=== PATIENT | male | born 1960 | race Caucasian/White ===

== ENCOUNTER 2025-05-13 11:07 | Outpatient (OUT) | payer OTHER, SELFPAY ==
--- OUTSIDE RECORDS SUMMARY | 2025-05-13 06:21 | XMS_ITS ---
Author Organization The [facility] in [place] Address [address] [place] [address] Care Team Providers Care Master In Chancery Name Role Phone Gray Ceja Primary Care Provider Reason For Referral Diagnosis 1 Atrial fibrillation (I48.91) Referral Organization [facility] Referring Provider First Name Gray Referring Provider Last Name Brenna [facility]ine Referred Provider Specialty Cardiology Referral Priority Routine REASON FOR VISIT referral- LMTCB Problems Problem Type SNOMED Code ICD Code Onset Dates Problem Status W/U Status Risk Notes Problem Atrial fibrillation (64781833) Atrial fibrillation (I48.91) Active confirmed Procedures Procedure Date Ordered Date Performed Result Body Sit e Echocardiogram 05/13/2025 N/A Encounters Encounter Location Date Provider Diagnosis [facility] [address] [place] [address] 05/13/2025 Gray Ceja Atrial fibrillation I48.91 Assessments Encounter Date Diagnosis (ICD Code) Assessment Notes Treatment Notes Treatment Clinical Notes Section Notes 05/13/2025 Atrial fibrillation (ICD-10 - I48.91) Plan Of Treatment Pending Test Test Name Order Date Echocardiogram 05/13/2025 Referrals Referral Date Details 05/13/2025 05/13/2025 Progress Notes * Noe QUINONES ADOB: (65 yo M)Acc No.[id number]:05/13/2025 UNLOCKED PROGRESS NOTE Patient: Homa Noe BOYLE :1960 A ge:65 Y S ex:Male Address:[address] [place], [address] Subjective: * Chief Complaints: * r eferral- LMTCB * Medical History: * Surgical History: * Hospitalization/Major Diagno stic Procedure: * Medications: Objective: * Vitals: * Physical Examination: Assessment: * Assessment: 1. A trial fibrillation - I48.91 (Primary) Plan: * Treatment: * Procedure Codes: * * Date: Consultation Request Notes Referral Date Referring Provider Referred Provider Not 05/13/2025 Gray Ceja ,
--- OUTSIDE RECORDS SUMMARY | 2025-05-13 06:29 | XMS_ITS ---
Author Organization [facility] in [place] Address [address] [place] [address] Care Team Providers Care Surveillance Technician Name Role Phone Gray Ceja Primary Care Provider REASON FOR VISIT Refills Medications Medication SIG (Take, Route, Frequency, Duration) Notes Start Date End Date Status ZyrTEC Allergy 10 MG 3 tablet Orally at bedtime for 90 days Active QUEtiapine Fumarate 100 MG TAKE 1 TABLET DAILY AT BEDTIME for 90 days Active Ventolin HFA 108 (90 Base) MCG/ACT 2 puff as needed Inhalation every 4 hrs for 90 days 04/21/2025 Active Montelukast Sodium 10 MG TAKE 1 TABLET O NCE DAILY for 90 days Active Naproxen 500 MG 1 tablet with food o r milk as needed Orally every 12 hrs for 90 days PRN Active Mirtazapine 30 MG 1 tablet at bedtime Orally Once a day for 90 days Active Encounters Encounter Location Date Provider Diagnosis [facility] [address] [place] [address] 05/13/2025 Gary Ceja Acute non-recurrent sinusitis, unspecified location J01.90 Assessments Encounter Date Diagnosis (ICD Code) Assessment Notes Treatment Notes Treatment Clinical Notes Section Notes 05/13/2025 Acute non-recurrent sinusitis, unspecified location (ICD-10 - J01.90) Plan Of Treatment Medication Medication Name Sig Start Date Stop Date Notes ZyrTEC Allergy 10 MG 3 tablet Orally at bedtime for 90 days QUEtiapine Fumarate 100 MG TAKE 1 TABLET DAILY AT BEDTIME for 90 days Ventolin HFA 108 (90 Base) MCG/ACT 2 puff as needed Inhalation every 4 hrs for 90 days 04/21/2025 Montelukast Sodium 10 MG TAKE 1 TABLET O NCE DAILY for 90 days Naproxen 500 MG 1 tablet with food o r milk as needed Orally every 12 hrs for 90 days PRN Mirtazapine 30 MG 1 tablet at bedtime Orally Once a day for 90 days Progress Notes * Noe ZIEGLER ADOB: 1 (65 yo M)Acc No.[id number]:05/13/2025 Patient: Noe MILLER :1960 A ge:65 Y S ex:Male Address:[address] [place] [address], [id number] * Refills Refill Mirtazapine Tablet, 30 MG, Orally, 90, 1 tablet at bedtime, Once a day, 90 days, Refills=3 Refill Montelukast Sodium Tablet, 10 MG, 90, TAKE 1 TABLET ONCE DAILY, 90 days, Refills=3 Refill Naproxen Tablet, 500 MG, Orally, 180, 1 tablet with food or milk as needed, every 12 hrs, 90 days, Refills=3 Refill QUEtiapine Fumarate Tablet, 100 MG, 90, TAKE 1 TABLET DAILY AT BEDTIME, 90 days, Refills=3 Refill Ventolin HFA Aerosol Solution, 108 (90 Base) MCG/ACT, Inhalation, 3 Each, 2 puff as needed, every 4 hrs, 90 days, Refills=3 Refill ZyrTEC Allergy Tablet, 10 MG, Orally, 270, 3 tablet, at bedtime, 90 days, Refills=3 * true * Date: Generated for Jeovany kelly/Kathrine/Scottitting on: 0 05/13/2025 11:17 AM EDT
--- OUTSIDE RECORDS SUMMARY | 2025-05-13 06:30 | XMS_ITS ---
Author Organization [facility] in [place] Address [address] [place] [address] Care Team Providers Care Leather Stripping Machine Operator Name Role Phone Gray Ceja Primary Care Provider Allergies Allergen (clinical drug ingredient) Drug/Non Drug Allergy documented on EMR Reaction Allergy Type Onset Date Status nabumetone Relafen Unknown Drug Allergy Active REASON FOR VISIT Presents to office alone for yearly wellness exam, Irregular heart beat noted. Denies any sob, chest pain or palpitations. EKG complete Medications Medication SIG (Take, Route, Frequency, Duration) Notes Start Date End Date Status Ventolin HFA 108 (90 Base) MCG/ACT 2 puff as needed Inhalation every 4 hrs 04/21/2025 Active ZyrTEC Allergy 10 MG 3 tablet Orally at bedtime for 90 days Active QUEtiapine Fumarate 100 MG TAKE 1 TABLET DAILY AT BEDTIME for 90 days Active Mirtazapine 30 MG 1 tablet at bedtime Orally Once a day for 90 days Active Montelukast Sodium 10 MG TAKE 1 TABLET O NCE DAILY for 90 days Active Metoprolol Tartrate 25 MG 1 tablet with food Orally Twice a day for 30 day(s) 05/13/2025 Active Naproxen 500 MG 1 tablet with food o r milk as needed Orally every 12 hrs for 90 days PRN Active Eliquis 5 MG as directed Orally 05/13/2025 Active Social History Tobacco Use: Social History Observation Description Date Details (start date - stop date) Former Smoker NA - 06/17/2010 Tobacco Use/Smoking Question Answer Notes Patient is a former smoker When did you stop smoking? 06/17/2010 How long has it been since you last smoked? > 10 years AUDIT-C (Standard) Question Answer Notes Did you have a drink contain ing alcohol in the past year? Yes How often did you have six o r more drinks on one occasion in the past year? Never (0 point) How many drinks did you have on a typical day when you were drinking in the past year? 1 or 2 drinks (0 point) How often did you have a dri nk containing alcohol in the past year? 2 to 4 times a month (2 points) Points 2 Interpretation Negative Problems Problem Type SNOMED Code ICD Code Onset Dates Problem Status W/U Status Risk Notes Problem Irregular heart beat (210160617) Irregular heart beat (I49.9) Active confirmed Problem Atrial flutter (I48.92) Active confirmed Vital Signs Weight 183.2 lbs 05/13/2025 Height 70 in 05/13/2025 Blood pressure systolic 122 mm Hg 05/13/20 25 Blood pressure diastolic 70 mm Hg 025 BMI 26.28 kg/m2 05/13/2025 Procedures Procedure Date Ordered Date Performed Result Body Sit e ECG with Interpretation 05/13/2025 N/A EAR IRRIGATION - performed 05/13/2025 N/A Encounters Encounter Location Date Provider Diagnosis [facility] [address] [place] [address] 05/13/2025 Gray Hoy Irregular heart beat I49.9 ; Well adult Z00.00 ; Atrial flutter I48.92 and Cerumen impaction H61.20 Assessments Encounter Date Diagnosis (ICD Code) Assessment Notes Treatment Notes Treatment Clinical Notes Section Notes 05/13/2025 Irregular heart beat (ICD-10 - I49.9) 05/13/2025 Well adult (ICD-10 - Z00.00) 05/13/2025 Atrial flutter (ICD-10 - I48.92) 05/13/2025 Cerumen impaction (ICD-10 - H61.20) Plan Of Treatment Medication Medication Name Sig Start Date Stop Date Notes Metoprolol Tartrate 25 MG 1 tablet with food Orally Twice a day for 30 day(s) 05/13/2025 Eliquis 5 MG as directed Orally 05/13/2025 Pending Test Test Name Order Date HEMOGLOBIN A1C (GLYCO) 05/13/2025 INSULIN, TOTAL 05/13/2025 LIPID PANEL (CHOL/TRIG/HDL/LDL) 05/13/20 25 ECG with Interpretation 05/13/2025 EAR IRRIGATION - performed 05/13/2025 High Sensitivity Troponin 05/13/2025 STOOL OCCULT BLOOD 05/13/2025 BNP 05/13/2025 THYROID PANEL (T4/TSH/FREE T3) PSA, SCREENING 05/13/2025 CMP (COMP MET MONTGOMERY) w/eGFR CKD-EPI 2024 CBC WITH DIFF 05/13/2025 Progress Notes * Noe ZIEGLER ADOB: 1 (65 yo M)Acc No.[id number]:05/13/2025 UNLOCKED PROGRESS NOTE Progress Note Patient: Noe MILLER Provider: Brittni Ceja ([facility])MD :1960 A ge:65 Y S ex:Male Date:05/13/2025 Address:[address] [place], [place] [phone] Check In:09:47 AM ESTCheck O ut:10:36 AM EST Subjective: * Chief Complaints: * 1 . Presents to office alone for yearly wellness exam. 2. Irregular heart beat noted. Denies any sob, chest pain or palpitations. EKG complete. * HPI: G eneral: Some c hange in exercise tolerance ECG with atrial flutter living i [facility]. * ROS: E ENT: hearing changes d enies. v isual changes d enies.?non-healing mouth sores d enies. s wollen glands or neck lumps d enies. h oarseness d enies. s ore throat d enies. d ifficulty swallowing d enies. n ose bleeds d enies. n pauline congestion d enies. e ar ache d enies. e ar discharge?denies. r inging in ears d enies. l ight sensitivity d enies. e ye pain d enies. b lurring d enies. e ye irritation d enies. d ouble vision d enies.?vision loss d enies. G eneral/Constitutional: Sweats: D enies. F atigue d enies. S leep problems d enies. A norexia d enies. M alaise d enies. W eight loss d enies.?Fatigue or Weakness d enies. F ever or Chills d enies. C ardiovascular: Shortness of Breath w/lying flat d enies. L ightheadedness/dizziness d enies. C hest tightness/ heavy pressure d enies. S welling of legs, ankles, or feet d enies. W aking up with shortness of breath d enies. C hest pain denies. P alpitations d enies. W eight gain d enies. R espiratory: Chronic or frequent cough d enies. C oughing up blood?denies. D ifficulty breathing d enies. P roductive cough d enies. S noring?denies. S hortness of breath that awakens from sleep (PND) d enies. C hest pain d enies. S putum production d enies. W heezing d enies. M usculoskeletal: Joint pain d enies. J oint Fluid d enies. B ack pain d enies. K nee pain d enies. N anne pain d enies. J oint Stiffness d enies. M uscle cramps d enies. W eakness of muscles d enies. A rthritis d enies. M uscle aches d enies. P ain in shoulder(s) d enies. S wollen joints d enies. * Medical History: A cute sinusitis, Acute bronchitis, COVID-19 virus infection, Rib pain on right side, Chronic obstructive pulmonary disease (COPD), Chest pain, Shoulder impingement syndrome, Frequency of urination, Elevated PSA, BPH NOS w ur obs/LUTS, Nasal sinus polyp, Sensorineural hearing loss, Deviated nasal septum, Chronic pansinusitis, Hypertension, Dyspnea, Allergic rhinitis, seasonal, Well adult, Elevated prostate specific antigen (PSA), Leg cramps, Chondromalacia of patella, right, Low back pain, unspecified. * Surgical History: N pauline Surgery . * Family History: F ather: 79 yrs. M other: 80 yrs. 1 son(s) , 2 daughter(s) - healthy. . * Social History: T obacco Use: T obacco Use/Smoking P atient is a f ormer smoker W hen did you stop smoking? 0 06/17/2010 H ow long has it been since you last smoked??> 10 years D rug/Alcohol: A TYSHAWN-C (Standard) D id you have a drink containing alcohol in the past year? Y es H ow often did you have six or more drinks on one occasion in the past year? N ever (0 point) H ow many drinks did you have on a typical day when you were drinking in the past year? 1 or 2 drinks (0 point) H ow often did you have a drink containing alcohol in the past year? 2 to 4 times a month (2 points) P oints 2 I nterpretation N egative * Medications: T aking Mirtazapine 30 MG Tablet 1 tablet at bedtime Orally Once a day , Taking Montelukast Sodium 10 MG Tablet TAKE 1 TABLET ONCE DAILY , Taking Naproxen 500 MG Tablet 1 tablet with food or milk as needed Orally every 12 hrs , Notes to Pharmacist: PRN, Taking QUEtiapine Fumarate 100 MG Tablet TAKE 1 TABLET DAILY AT BEDTIME , Taking Ventolin HFA(Albuterol Sulfate HFA) 108 (90 Base) MCG/ACT Aerosol Solution 2 puff as needed Inhalation every 4 hrs , Taking ZyrTEC Allergy(Cetirizine HCl) 10 MG Tablet 3 tablet Orally at bedtime , Discontinued Amoxicillin-Pot Clavulanate 875-125 MG Tablet 1 tablet Orally every 12 hrs , Discontinued predniSONE 20 MG Tablet 3 tablets Orally Once a day , Discontinued Ventolin HFA(Albuterol Sulfate HFA) 108 (90 Base) MCG/ACT Aerosol Solution 1 puff as needed Inhalation every 4 hrs , Notes to Pharmacist: PRN, Medication List reviewed and reconciled with the patient * Allergies: R elafen - Criticality High. Objective: * Vitals: W t:183.2lbs, Ht: 70 in, BP:122/70mm Hg, BMI:26.28Index, Ht-cm: 177.8 cm, Wt-k.1 kg. * Examination: P hysical Exam: GENERAL: w ell developed, well nourished, in no acute distress. HEAD: n ormocephalic/atraumatic. EYES: p upils equal, round and reactive to light, conjunctivae and sclerae normal. EARS: n o deformity or lesion of external ear, canals and TM appear normal bilaterally, TM's intact, not inflamed with normal light reflex, hearing grossly normal to conversational speech. NOSE: n o deformity, discharge, inflammation, or lesions.? MOUTH: m ucous membranes moist, normal oropharynx and posterior pharynx without lesions or exudates, tongue normal, dentition normal. NECK: n anne supple, no masses or palpable cervical nodes, trachea midline, thyroid without nodules, masses, tenderness, or enlargement. CHEST: n o chest wall deformity, no chest wall tenderness.? LUNGS: n ormal respiratory effort and clear to auscultation, no wheezes, rales, or rhonchi, good air exchange. CARDIO: i rreg irreg. PULSES: n ormal capillary refill. ABDOMEN: s oft, non-distended, non-tender, no masses. MUSCULOSKELETAL: n o deformity or scoliosis noted, normal range of motion, joints normal, no erythema, edema, effusion, or ecchymosis. EXTREMITY: n o clubbing, cyanosis, edema, or deformity with normal ROM in both upper and lower bilateral extremities. NEUROLOGIC: g rossly normal. SKIN: n o rashes, ulcerations, or suspicious lesions. LYMPH NODES: n o cervical adenopathy, nodes normal. MENTAL STATUS: a lert and oriented x3, normal mood and affect. Assessment: * Assessment: 1. I rregular heart beat - I49.9 (Primary) 2 . W ell adult - Z00.00 ? 3 . A trial flutter - I48.92 4 . C erumen impaction - H61.20 ? Plan: * Treatment: 2.?Well adult?LAB: HEMOGLOBIN A1C (GLYCO) ?LAB: INSULIN, TOTAL ?LAB: LIPID PANEL (CHOL/TRIG/HDL/LDL) ?LAB: STOOL OCCULT BLOOD ?LAB: THYROID PANEL (T4/TSH/FREE T3) ?LAB: PSA, SCREENING ?LAB: CMP (COMP MET MONTG[place]) w/eGFR CKD-EPI ?LAB: CBC WITH DIFF3.?Atrial flutter? Start Eliquis Tablet, 5 MG, as directed, Orally.?LAB: HEMOGLOBIN A1C (GLYCO) ?LAB: INSULIN, TOTAL ?LAB: LIPID PANEL (CHOL/TRIG/HDL/LDL) ?LAB: STOOL OCCULT BLOOD ?LAB: THYROID PANEL (T4/TSH/FREE T3) ?LAB: PSA, SCREENING ?LAB: CMP (COMP MET [place]) w/eGFR CKD-EPI ?LAB: CBC WITH DIFF4.?Cerumen impaction?Procedure: EAR IRRIGATION - performed * Procedure Codes: 9 3000 EKG, [place]., [address] REMOVE IMPACTED CERUMEN * Preventive Medicine: Screenings/Counseling: B [place] ACTION PLAN Above Normal BMI Follow-up D ietary management education, guidance, and counseling See treatment section of progress note for complete details of management plan. * * Electronic signature of Gray Ceja MD, [phone] on 05/13/2025 at 11:17 AM EDT Sign off status: Pending Visit Status: C HK (Check Out) * Provider: Brittni Ceja ([facility])MD Date: 0 05/13/2025 Generated for Printi ng/Faxing/eTransmitting on: 0 05/13/2025 11:17 AM EDT History and Physical Notes * HPI (History of Present Illness) Category Sub-Category Detail Notes Category Not es General Some c hange in exercise tolerance ECG with atrial flutter [facility] [place] [facility] Examination Category Sub-Category Detail Notes Category Not es Physical Exam GENERAL: well developed, well nourished, in no acute distress HEAD: normocephalic/atraum atic EYES: pupils equal, round and reactive to light, conjunctivae and sclerae normal EARS: no deformity or lesi on of external ear, canals and TM appear normal bilaterally, TM's intact, not inflamed with normal light reflex, hearing grossly normal to conversational speech NOSE: no deformity, discha rge, inflammation, or lesions MOUTH: mucous membranes jennifer st, normal oropharynx and posterior pharynx without lesions or exudates, tongue normal, dentition normal NECK: neck supple, no mass es or palpable cervical nodes, trachea midline, thyroid without nodules, masses, tenderness, or enlargement CHEST: no chest wall deform ity, no chest wall tenderness LUNGS: normal respiratory e ffort and clear to auscultation, no wheezes, rales, or rhonchi, good air exchange CARDIO: irreg irreg PULSES: normal capillary ref ill ABDOMEN: soft, non-distended, non-tender, no masses RECTAL: MUSCULOSKELETAL: no deformity or scol iosis noted, normal range of motion, joints normal, no erythema, edema, effusion, or ecchymosis EXTREMITY: no clubbing, cyanosi s, edema, or deformity with normal ROM in both upper and lower bilateral extremities NEUROLOGIC: grossly normal SKIN: no rashes, ulceratio ns, or suspicious lesions LYMPH NODES: no cervical adenopat hy, nodes normal MENTAL STATUS: alert and oriented x 3, normal mood and affect
--- OUTSIDE RECORDS SUMMARY | 2025-05-13 11:17 | XMS_ITS | Clinical Summary ---
Author Organization [facility] Address [address] [place] [address] Care Team Providers Care Senior Logistics Manager Name Role Phone Angel Ceja MD Primary Care Provider [phone] Social History Tobacco Use Types Packs/Day Years Used Date Smoking Tobacco: Never Assessed Sex and Gender Information Value Date Recorded Sex Assigned at Not on file Legal Sex Male 2:14 PM EST Gender Identity Not on file Sexual Orientation Not on file Plan of Treatment Health Maintenance Due Date Last Done Comments HEPATITIS C VIRUS SCREENING 1960 TETANUS 1960 HIV SCREENING DISCUSSION 02/06/1976 TDAP (ADULT) 02/06/1980 LIPID SCREENING 2001 COLORECTAL CANCER SCREENING DISCUSSION 2006 PNEUMOCOCCAL VACCINE SERIES (1 of 1 - PCV) 2011 ZOSTER (SHINGLES) VACCINE (1 of 2) 2011 PROSTATE CANCER SCREENING DISCUSSION 02/06/2016 COVID-19 VACCINE ( - 2023- season) 2024 INFLUENZA VACCINE (Season Ended) 2025 09/12/2021, 07/29/2020, 08/27/2018, Additional history exists RSV VACCINE (1 - 1-dose 75+ series) 02/06/2036 HEP B VACCINE Aged Out No longer elig isai based on patient's age to complete this topic Insurance [facility] [employer] Care Teams Senior Logistics Manager Relationship Specialty Start Date End Date Angel Ceja MD PCP - General Family Medicine 12/04/21
--- OUTSIDE RECORDS SUMMARY | 2025-05-13 11:17 | XMS_ITS | Patient Health Record ---
Author Organization [facility] [place] Address [address] [place] [address] Care Team Providers Care Home Visitor [employer] Name Role Phone Gray Ceja Primary Care Provider Allergies Allergen (clinical drug ingredient) Drug/Non Drug Allergy documented on EMR Reaction Allergy Type Onset Date Status nabumetone Relafen Unknown Drug Allergy Active Reason For Referral Diagnosis 1 Atrial fibrillation (I48.91) Referral Organization [facility] Referring Provider First Name Gray Referring Provider Last Name Brenna Referring Provider Speciality [facility] Referred Provider Specialty Cardiology Referral Priority Routine Medications Medication SIG (Take, Route, Frequency, Duration) Notes Start Date End Date Status Eliquis 5 MG as directed Orally 05/13/2025 Active Mirtazapine 30 MG 1 tablet at bedtime Orally Once a day for 90 days Active Montelukast Sodium 10 MG TAKE 1 TABLET O NCE DAILY for 90 days Active Ventolin HFA 108 (90 Base) MCG/ACT 2 puff as needed Inhalation every 4 hrs 04/21/2025 Active ZyrTEC Allergy 10 MG 3 tablet Orally at bedtime for 90 days Active Metoprolol Tartrate 25 MG 1 tablet with food Orally Twice a day for 30 day(s) 05/13/2025 Active Naproxen 500 MG 1 tablet with food o r milk as needed Orally every 12 hrs for 90 days PRN Active QUEtiapine Fumarate 100 MG TAKE 1 TABLET DAILY AT BEDTIME for 90 days Active Social History Tobacco Use: Social History [...] Problem Status W/U Status Risk Notes Problem Chronic pansinusitis (94183200) Chronic pansinusitis (J32.4) Active confirmed Problem Deviated nasal septum (162338707) Deviated nasal septum (J34.2) Active confirmed Problem Chest pain (40645021) Chest pain (R07.9) Active confirmed Problem Atrial fibrillation (94342596) Atrial fibrillation (I48.91) Active confirmed Problem Atrial flutter (5498584) Atrial flutter (I48.92) Active confirmed Problem Hypertension (30757308) Hypertension (I10) Active confirmed Problem Chronic obstructive pulmonary disease (86225534) Chronic obstructive pulmonary disease (COPD) (J44.9) Active confirmed Problem Dyspnea (698518982) Dyspnea (R06.00) Active confirmed Problem Acute sinusitis (13710935) Acute sinusitis (J01.90) Active confirmed Problem Acute bronchitis (44056723) Acute bronchitis (J20.9) Active confirmed Problem Chondromalacia of patella (79251648) Chondromalacia of patella, right (M22.41) Active confirmed Problem Well adult (217080857) Well adult (Z00.00) Active confirmed Problem Cramp in lower limb (870166011) Leg cramps (R25.2) Active confirmed Problem Sensorineural hearing loss (12239690) Sensorineural hearing loss (H90.5) Active confirmed Problem Seasonal allergic rhinitis (053768742) Allergic rhinitis, seasonal (J30.2) Active confirmed Problem Irregular heart beat (752795062) Irregular heart beat (I49.9) Active confirmed Problem Breathing painful (58777694) Rib pain on right side (R07.81) Active confirmed Problem Nasal sinus polyp (25997891) Nasal sinus polyp (J33.8) Active confirmed Problem Frequency of urination (381645469) Frequency of urination (R35.0) Active confirmed Problem Benign prostatic hypertrophy with outflow obstruction (356129119) BPH NOS w ur obs/LUTS (N40.1) Active confirmed Problem Shoulder impingement syndrome (140804343) Shoulder impingement syndrome (M75.40) Active confirmed Problem Elevated PSA (062310322) Elevated PSA (R97.20) Active confirmed Problem Elevated PSA (898296151) Elevated prostate specific antigen (PSA) (R97.20) Active confirmed Problem Disease caused by Severe acute respiratory syndrome coronavirus 2 (disorder) (930918278) COVID-19 virus infection (U07.1) Active confirmed Problem Low back pain (166887093) Low back pain, unspecified (M54.50) Active confirmed Vital Signs Blood pressure diastolic 70 mm Hg 05/13/2025 Height 70 in 05/13/2025 Blood pressure systolic 122 mm Hg 05/13/2025 Weight 183.2 lbs 05/13/2025 BMI 26.28 kg/m2 05/13/2025 Procedures Procedure Date Ordered Date Performed Result Body Sit e Echocardiogram 05/13/2025 N/A ECG with Interpretation 05/13/2025 N/A EAR IRRIGATION - performed 05/13/2025 N/A Encounters Encounter Location Date Provider Diagnosis [place] [address] [place] [address] 05/13/2025 Gray Ceja Atrial fibrillation I48.91 [facility] [address] [place] [address] 06/29/2024 Gray Ceja [facility] [address] [place] [address] 08/11/2024 Gray Ceja [facility] [address] [place] [address] 08/12/2024 Gray susy [facility] [address] [place] [address] 01/28/2025 Gray [facility] [address] [place] [address] 05/13/2025 Gray Ceja Acute non-recurrent sinusitis, unspecified location [address]01.[address] [place] [address] 05/13/2025 Gray Hoy Irregular heart beat I49.9 ; Well adult Z00.00 ; Atrial flutter I48.92 and Cerumen impaction H61.[address] [address] 08/11/2024 Gray Hoy Acute non-recurrent sinusitis, unspecified location J01.90 and Nasal congestion R09.[address] [address] 10/27/2024 Gray Hoy Acute non-recurrent sinusitis, unspecified location J01.90 and Nasal congestion R09.[address] [address] 11/22/2024 Gray Hoy Acute bronchitis, unspecified organism J20.[address] [address] 04/21/2025 Gray Hoy Acute non-recurrent sinusitis, unspecified location J01.90 and Nasal congestion R09.81 Assessments Encounter Date Diagnosis (ICD Code) Assessment Notes Treatment Notes Treatment Clinical Notes Section Notes 08/11/2024 Acute non-recurrent sinusitis, unspecified location (ICD-10 - J01.90) Rest and drink more liquids, especially water. You may use a humidifier or vaporizer to help keep the drainage moist. Hhmc-ogu-bxgwrre Nasal Saline may help the stuffy and runny nose. Use Ibuprofen and or Tylenol as needed for fever, chills, body aches or pain. Children 5 years old should not be given hyro-xjd-iqpxgiv cough and cold medications such as guaifenesin and dextromethorphan. If you're over age 5, you may try bqer-llb-fefjudn cold medications such as guaifenesin and dextromethorphan, or multi-symptom cold reliever such as Dayquil to help reduce the symptoms. Antibiotics have been prescribed. You should take these until completed and follow the directions. Antibiotics can sometimes cause upset stomach, and in rare cases, serious allergic reactions or serious gastrointestinal problems. If you start having severe abdominal pain, severe vomiting, or bloody diarrhea, you should be reevaluated by your physician or urgent care immediately. Follow up with your Primary Care Provider or return to clinic if symptoms do not improve within 3-5 days 10/27/2024 Acute non-recurrent sinusitis, unspecified location (ICD-10 - J01.90) Rest and drink more liquids, especially water. You may use a humidifier or vaporizer to help keep the drainage moist. Qclb-qoe-iicwllh Nasal Saline may help the stuffy and runny nose. Use Ibuprofen and or Tylenol as needed for fever, chills, body aches or pain. Children 5 years old should not be given cjoo-tcy-dynkjgj cough and cold medications such as guaifenesin and dextromethorphan. If you're over age 5, you may try dmwl-syk-jwudkrr cold medications such as guaifenesin and dextromethorphan, or multi-symptom cold reliever such as Dayquil to help reduce the symptoms. Antibiotics have been prescribed. You should take these until completed and follow the directions. Antibiotics can sometimes cause upset stomach, and in rare cases, serious allergic reactions or serious gastrointestinal problems. If you start having severe abdominal pain, severe vomiting, or bloody diarrhea, you should be reevaluated by your physician or urgent care immediately. Follow up with your Primary Care Provider or return to clinic if symptoms do not improve within 3-5 days 11/22/2024 Acute bronchitis, unspecified organism (ICD-10 - J20.9) Rest and drink more liquids, especially water. You may use a humidifier or vaporizer to help keep the drainage moist. Ufbw-spi-tsvpkhz Nasal Saline may help the stuffy and runny nose. Use Ibuprofen and or Tylenol as needed for fever, chills, body aches or pain. Children 5 years old should not be given xsmz-tbo-yhxjzyh cough and cold medications such as guaifenesin and dextromethorphan. If you're over age 5, you may try oody-ujt-upjbogo cold medications such as guaifenesin and dextromethorphan, or multi-symptom cold reliever such as Dayquil to help reduce the symptoms. Antibiotics have been prescribed. You should take these until completed and follow the directions. Antibiotics can sometimes cause upset stomach, and in rare cases, serious allergic reactions or serious gastrointestinal problems. If you start having severe abdominal pain, severe vomiting, or bloody diarrhea, you should be reevaluated by your physician or urgent care immediately. Follow up with your Primary Care Provider or return to clinic if symptoms do not improve within 3-5 days. If you develop severe symptoms such as shortness of breath, repeated vomiting, coughing up blood, or chest pain you should go to the emergency room or call 911 04/21/2025 Acute non-recurrent sinusitis, unspecified location (ICD-10 - J01.90) Rest and drink more liquids, especially water. You may use a humidifier or vaporizer to help keep the drainage moist. Gguq-hga-fybnxnt Nasal Saline may help the stuffy and runny nose. Use Ibuprofen and or Tylenol as needed for fever, chills, body aches or pain. Children 5 years old should not be given xqfq-kpc-pckcbpp cough and cold medications such as guaifenesin and dextromethorphan. If you're over age 5, you may try mhot-vts-begfzfj cold medications such as guaifenesin and dextromethorphan, or multi-symptom cold reliever such as Dayquil to help reduce the symptoms. Antibiotics have been prescribed. You should take these until completed and follow the directions. Antibiotics can sometimes cause upset stomach, and in rare cases, serious allergic reactions or serious gastrointestinal problems. If you start having severe abdominal pain, severe vomiting, or bloody diarrhea, you should be reevaluated by your physician or urgent care immediately. Follow up with your Primary Care Provider or return to clinic if symptoms do not improve within 3-5 days 05/13/2025 Irregular heart beat (ICD-10 - I49.9) 05/13/2025 Well adult (ICD-10 - Z00.00) 05/13/2025 Atrial fibrillation (ICD-10 - I48.91) 05/13/2025 Acute non-recurrent sinusitis, unspecified location (ICD-10 - J01.90) 05/13/2025 Atrial flutter (ICD-10 - I48.92) 04/21/2025 Nasal congestion (ICD-10 - R09.81) 10/27/2024 Nasal congestion (ICD-10 - R09.81) 08/11/2024 Nasal congestion (ICD-10 - R09.81) 05/13/2025 Cerumen impaction (ICD-10 - H61.20) Plan Of Treatment Pending Test Test Name Order Date CMP (COMPLETE METABOLIC PANEL) 3 HEMOGLOBIN A1C (GLYCO) 05/13/2025 HEMOGLOBIN A1C (GLYCO) 04/11/2023 INSULIN, TOTAL 04/11/2023 INSULIN, TOTAL 05/13/2025 LIPID PANEL (CHOL/TRIG/HDL/LDL) 05/13/20 25 LIPID PANEL (CHOL/TRIG/HDL/LDL) 04/11/20 23 CBC WITH DIFF 04/11/2023 PSA, PROSTATE-SPECIFIC ANTIGEN 3 URIC ACID 04/11/2023 Echocardiogram 05/13/2025 ECG with Interpretation 05/13/2025 EAR IRRIGATION - performed 05/13/2025 High Sensitivity Troponin 05/13/2025 STOOL OCCULT BLOOD 04/11/2023 STOOL OCCULT BLOOD 05/13/2025 BNP 05/13/2025 THYROID PANEL (T4/TSH/FREE T3) 5 THYROID PANEL (T4/TSH/FREE T3) 3 PSA, SCREENING 05/13/2025 CMP (COMP MET [place]) w/eGFR CKD-EPI 2024 CBC WITH DIFF 05/13/2025 Insurance Providers Payer Name Payer Address Payer Phone Subscriber Number Group Number Insured Name Patient Relationship to Insured Coverage Start Date Coverage End Date [facility] [address] [address] [place] [phone] [id number] ErlinNoe austin Self - patient is the insured Medications Administered Medication Instructions Date of Administration Dosage Notes Kenalog-40 11/07/2023 120 mg 120 Medical (General) History Medical History History ICD Code Acute sinusitis J01.90 Acute bronchitis J20.9 COVID-19 virus infection U07.1 Rib pain on right side R07.81 Chronic obstructive pulmonary disease (C OPD) J44.9 Chest pain R07.9 Shoulder impingement syndrome M75.40 Frequency of urination R35.0 Elevated PSA R97.20 BPH NOS w ur obs/LUTS N40.1 Nasal sinus polyp J33.8 Sensorineural hearing loss H90.5 Deviated nasal septum J34.2 Chronic pansinusitis J32.4 Hypertension I10 Dyspnea R06.00 Allergic rhinitis, seasonal J30.2 Well adult Z00.00 Elevated prostate specific antigen (PSA) R97.20 Leg cramps R25.2 Chondromalacia of patella, right M22.41 Low back pain, unspecified M54.50 Surgical History Surgery Date(Month/Year) Nasal Surgery
--- OUTSIDE RECORDS SUMMARY | 2025-05-13 11:17 | XMS_ITS | Encounter Summary ---
Author Organization [facility] Address [address] [place], [place] [address] Care Team Providers Care Console Operator Name Role Phone Angel Ceja MD Primary Care Provider [phone] Source Comments In the event this information is protected by the Federal Confidentiality of Alcohol and Drug AbusePatient Records regulations: The Federal rules restrict any use of the information to criminally investigate or prosecute any alcohol or drug abuse patient.[facility] Encounter Details Date Type Department Care Team (Latest Contact Info) Description 05/09/2005 Prob Sum Review Provider, Cece Social History Tobacco Use Types Packs/Day Years Used Date Smoking Tobacco: Never Assessed Sex and Gender Information Value Date Recorded Sex Assigned at Not on file Legal Sex Male 10:00 AM EST Gender Identity Not on file Sexual Orientation Not on file documented as of this encounter Plan of Treatment Not on file documented as of this encounter Visit Diagnoses Not on filedocumented in this encounter Care Teams Console Operator Relationship Specialty Start Date End Date Angel Ceja MD PCP - General 04/24/05 documented as of this encounter
--- OUTSIDE RECORDS SUMMARY | 2025-05-13 11:17 | XMS_ITS | Clinical Summary ---
Author Organization [facility] Address [facility] [place] [address] Care Team Providers Care Corrections Officer Name Role Phone Angel Ceja MD Primary Care Provider [phone] Social History Tobacco Use Types Packs/Day Years Used Date Smoking Tobacco: Never Assessed Sex and Gender Information Value Date Recorded Sex Assigned at Not on file Legal Sex Male 4:35 AM EDT Gender Identity Not on file Sexual Orientation Not on file Plan of Treatment Health Maintenance Due Date Last Done Comments CT Colonography 1961 Colonoscopy 1961 Colorectal Cancer Screening/Monitoring 1961 Fecal DNA 1961 Fecal occult blood test (FOBT,FIT) 1961 Tetanus: Every 10yrs 1961 Wellness Visit 02/06/1964 Depression Screening/Follow-Up (PHQ-2/9) 1973 HIV Screening 02/06/1976 Hepatitis C Screening 1979 Pneumococcal Vaccine: Age 50+ (1 of 1 - PCV) 1 Zoster Vaccines (1 of 2) 2011 PSA Level 11/25/2021 11/25/2019 COVID-19 Vaccine ( - season) 2024 Influenza Vaccine (Season Ended) 2025 Respiratory Syncytial Virus Immunization: Risk, 60-74 Risk, or 75+ (1 - 1-dose 75+ series) 02/06/2036 Procedures Procedure Name Priority Date/Time Associated Diagnosis Comments PSA, TOTAL AND FREE Routine 11/25/2019 1 :34 PM EST Routine general medical examination at a health care facility from Last 3 Months or Most Recently Relevant to Health Maintenance Results * (ABNORMAL) PSA, Total and Free (11/25/2019 1:34 PM EST) PSA 8.52(H) 0.00 - 0.99 ng/mL 11/25/2019 10:12 PM EST [facility] Comment: Per the National Comprehensive Cancer Network (NCCN) Guidelines: . PSA> 3.0 ng/ml is positive regardless of age . PSA normal values are based upon a patient with a normal Digital Rectal Exam (ANA). A ANA suspicious for cancer at any PSA level is an indication for biopsy. . Any serum PSA level in a patient previously treated for prostate cancer should be interpreted with caution. PSA, Free 1.53 ng/mL 11/25/2019 10:12 PM EST [facility] PSA, Free Pct 18 % 11/25/2019 10:12 PM EST [facility] Comment: A cutoff value of 25% FPSA is recommended. Greater than 25% FPSA is associated with a reduced risk of prostate cancer; Less than 10% FPSA an increased risk. Blood BLOOD SPECIMEN / Unknown Venipuncture / Unknown 11/25/2019 1:34 PM EST 11/25/2019 1:34 PM EST us Anegl Ceja MD LAB BLOOD ORDERABLES Final Resul t [facility] [address] [place] [address] from Last 3 Months or Most Recently Relevant to Health Maintenance Insurance [employer]UE[employer]/PREF/HMO/PPO Care Teams Corrections Officer Relationship Specialty Start Date End Date Angel Ceja MD [address] [place] [address] PCP - General Family Medicine 09/21/19
--- OUTSIDE RECORDS SUMMARY | 2025-05-13 11:18 | XMS_ITS | Clinical Summary ---
Author Organization [facility] Address [address] [place] [address] Care Team Providers Care Customer Engagement Specialist Name Role Phone Unavailable Primary Care Provider Unavailabl e Social History Tobacco Use Types Packs/Day Years Used Date Smoking Tobacco: Never Assessed Sex and Gender Information Value Date Recorded Sex Assigned at Not on file Legal Sex Male 7:23 PM EDT Gender Identity Not on file Sexual Orientation Not on file Last Filed Vital Signs Vital Sign Reading Time Taken Comments Blood Pressure 137/86 10/22/2019 12:00 PM EST Pulse - - Temperature - - Respiratory Rate - - Oxygen Saturation - - Inhaled Oxygen Concentration - - Weight 84.4 kg (186 lb) 10/22/2019 12:00 PM EST Height 180.3 cm (5' 11 ) 10/22/2019 12:00 PM EST Body Mass Index 25.94 10/22/2019 12:00 PM EST Plan of Treatment Not on file
--- OUTSIDE RECORDS SUMMARY | 2025-05-13 11:18 | XMS_ITS | Clinical Summary ---
Author Organization [facility] Address [address] [place] [address] Care Team Providers Care Licensed Practical Vocational Nurse Name Role Phone Angel Ceja MD Primary Care Provider [phone] Allergies No known active allergies Medications ZANTAC 300MG TABLET Take One tablet daily 30 6 09/08/2003 Active NATASHA 180MG TABLET Take two tabs po BID 120 0 01/06/2004 Active ZYRTEC 10MG TABLET Take 3 tabs po QD 90 0 01/06/2004 Active PREDNISONE 5MG TABLET Take 2 tabs po QD 100 0 01/06/2004 Active SINGULAIR 10MG TABLET Take one tab QD 30 0 01/06/2004 Active DOXEPIN 10MG CAPSULE Take one tab po QHS 30 0 01/06/2004 Active naproxen (NAPROSYN) 500 mg tablet Take 500 mg by mouth as needed for Pain. Active MULTIVITAMIN ORAL Take by mouth once daily. Active ergocalciferol, vitamin D2, (VITAMIN D2 ORAL) Take by mouth once daily. Active mirtazapine (REMERON) 15 mg tablet Take 30 mg by mouth daily at bedtime. Active quetiapine fumarate (QUETIAPINE ORAL) Take by mouth daily at bedtime. Active Active Problems No known active problems Social History Tobacco Use Types Packs/Day Years Used Date Smoking Tobacco: Former Smokeless Tobacco: Never Alcohol Use Standard Drinks/Week Comments Yes 0 (1 standard drink = 0.6 oz pur e alcohol) AUDIT-C Answer Date Recorded Q1: How often do you have a drink containing alcohol? 4 or more times a week 11/09/2019 Average Number of Drinks Not on file 019 Frequency of Binge Drinking Not on file 10/18 Area Deprivation Index Answer Date Ruddy rded National Score (1-100), lower number is lower ri sk Not on file 10/23/2020 State Score (1-10), lower number is lower risk N ot on file 10/23/2020 Data from: https://www.neighborhoodatlas.medicine.[facility]/. Last address used for calculation Not on file 10/23/2020 Sex and Gender Information Value Date Recorded Sex Assigned at Not on file Legal Sex Male 10:00 AM EST Gender Identity Not on file Sexual Orientation Not on file Last Filed Vital Signs Vital Sign Reading Time Taken Comments Blood Pressure 148/94 11/09/2019 10:42 AM EST Pulse 60 11/09/2019 10:42 AM EST Temperature 35.2 C (95.4 F) 03/22/2004 3:30 PM EDT Respiratory Rate 20 09/08/2003 1:30 PM EDT Oxygen Saturation - - Inhaled Oxygen Concentration - - Weight 78.9 kg (174 lb) 12/14/2019 2:25 PM EST Height 180.3 cm (5' 11 ) 12/14/2019 2:25 PM EST Body Mass Index 24.27 12/14/2019 2:25 PM EST Plan of Treatment Health Maintenance Due Date Last Done Comments Anxiety Screening 1979 Depression Screening 1979 HIV Screening 1979 Hepatitis C Screening 1979 DTaP,Tdap,Td Vaccine (1 - Tdap) 02/06/1980 CT Colonography 2006 Cologuard (FIT-DNA) 2006 Colonoscopy 2006 Colorectal Cancer Screening 2006 Fecal Occult Blood 2006 Sigmoidoscopy 2006 Pneumococcal Vaccine: 50+ (1 of 1 - PCV) 2011 Shingrix Vaccine (1 of 2) 2011 Diabetes Screening 11/25/2022 11/25/2019, 0 11/25/2019, 11/25/2019, Additional history exists Covid-19 Vaccine (1 - 2023-2 5 season) 2024 Lipid Screening 11/25/2024 11/25/2019 Prostate Cancer Screening Discussion 11/25/2024 11/25/2019 Influenza Vaccine (Season Ended) 2025 09/01/20 19 RSV Vaccine (1 - 1-dose 75+ series) 02/06/2036 Procedures Procedure Name Priority Date/Time Associated Diagnosis Comments COMPREHENSIVE METABOLIC PANEL Routine 08/02/2003 5:34 PM EDT Idiopathic Urticaria Angioneurotic Edema from Last 3 Months or Most Recently Relevant to Health Maintenance Results * (ABNORMAL) COMP METABOLIC PANEL (08/02/2003 5:34 PM EDT) Protein, Total 7.1 6.0 - 8.4 g/dL [facility] Albumin 4.4 3.5 - 5.0 g/dL [facility] Calcium 9.8 8.5 - 10.5 mg/dL [facility] Bilirubin, Total 0.9 0.0 - 1.5 mg/dL [facility] Alkaline Phosphatase 71 40 - 150 U/L [facility] AST 15 7 - 40 U/L [facility] Glucose 76 65 - 110 mg/dL [facility] BUN 11 10 - 25 mg/dL [facility] Creatinine 0.6(A) 0.7 - 1.4 mg/dL [facility] Sodium 138 135 - 146 mmol/L [facility] Potassium 4.1 3.5 - 5.0 mmol/L [facility] Chloride 103 98 - 110 mmol/L [facility] CO2 21(A) 24 - 32 mmol/L [facility] Anion Gap 14 0 - 15 mmol/L [facility] ALT 11 5 - 50 U/L [facility] Blood specimen (specimen) BLOOD SPECIMEN / Unknown 08/02/2003 5:34 PM EDT us Fan Rich MD LABORATORY Final Result [facility] [address] [place] [address] from Last 3 Months or Most Recently Relevant to Health Maintenance Insurance [facility] [employer] Care Teams Licensed Practical Vocational Nurse Relationship Specialty Start Date End Date Angel Ceja MD PCP - General 04/24/05
--- OUTSIDE RECORDS SUMMARY | 2025-05-13 11:18 | XMS_ITS | Encounter Summary ---
Author Organization [facility] Address [address] [place], [place] [address] Care Team Providers Care Vocational Auto Body Instructor Name Role Phone Angel Ceja MD Primary Care Provider [phone] Source Comments In the event this information is protected by the Federal Confidentiality of Alcohol and Drug AbusePatient Records regulations: The Federal rules restrict any use of the information to criminally investigate or prosecute any alcohol or drug abuse patient.[facility] Encounter Details Date Type Department Care Team (Late st Contact Info) Description 10/29/2021 Patient Msg Urology [address] [place] [address] Ed Egan PA-C [address] [place] [address] Appointment Request Social History Tobacco Use Types Packs/Day Years [...] N ot on file 10/23/2020 Data from: https://www.neighborhoodatlas.medicine.[facility].edu/. Last address used for calculation Not on [...] on filedocumented in this encounter Care Teams Vocational Auto Body Instructor Relationship Specialty Start Date End Date Angel Ceja MD PCP - General 04/24/05 documented as of this encounter
[2025-05-13 11:47] LABS: Basophils Absolute Auto 0.1 10^3/uL (0.0-0.1); Basophils Percent Auto 1.1 % (0.2-2.0); Eosinophils Absolute Auto 0.2 10^3/uL (0.0-0.7); Eosinophils Percent Auto 4.2 % (0.9-7.0); Hematocrit 39.9 % (42.0-54.0); Hemoglobin 13.8 g/dL (14.0-18.0); Lymphocytes Absolute Auto 1.7 10^3/uL (1.2-3.8); Lymphocytes Percent Auto 34.8 % (20.5-60.0); Mean Corpuscular HGB Conc 34.6 g/dL (29.9-35.2); Mean Corpuscular Hemoglobin 32.4 pg (25.9-34.0); Mean Corpuscular Volume 93.7 fL (80.0-94.0); Mean Platelet Volume 9.9 fL (9.5-13.5); Monocytes Absolute Auto 0.7 10^3/uL (0.3-0.8); Monocytes Percent Auto 14.1 % (1.7-12.0); Neutrophils Absolute Auto 2.2 10^3/uL (1.4-6.5); Neutrophils Percent Auto 45.8 % (43.0-75.0); Platelet Count 237 10^3/uL (150-450); Red Blood Count 4.26 10^6/uL (4.70-6.10); Red Cell Distribution Width 13.8 % (11.0-15.0); White Blood Count 4.7 10^3/uL (4.0-11.0)
[2025-05-13 11:54] LABS: Estimated Average Glucose 114 mg/dL; Glycohemoglobin A1C 5.6 % (4.5-6.2)
[2025-05-13 12:35] LABS: Alanine Aminotransferase 34 U/L (16-63); Albumin Level 3.4 g/dL (3.4-5.0); Alkaline Phosphatase 60 U/L (46-116); Anion Gap 9.5; Aspartate Amino Transferase 30 U/L (15-37); BUN Creatinine Ratio 29.3; Bilirubin Total 0.7 mg/dL (0.2-1.0); Calcium 9.1 mg/dL (8.5-10.1); Carbon Dioxide 29.4 mmol/L (21.0-32.0); Chloride 103 mmol/L (98-107); Chol HDL Ratio 2.8; Cholesterol 204 mg/dL (<=200); Estimated GFR (African America >60 (>=60 mL/min/1.73m^2); Estimated GFR (Non-African Ame >60 (>=60 mL/min/1.73m^2); Free T3 2.19 pg/mL (2.18-3.98); Globulin 3.4 g/dL; Glucose 111 mg/dL (74-106); HDL Cholesterol 72 mg/dL (40-60); Potassium 3.9 mmol/L (3.5-5.1); Sodium 138 mmol/L (136-145); Total Protein 6.8 g/dL (6.4-8.2); Triglycerides 81 mg/dL (<=150); Troponin I High Sensitivity 6.3 pg/mL (4.0-76.1); VLDL CHOLESTEROL 16.2 mg/dL
[2025-05-13 12:39] LABS: Prostate Specific Antigen Scrn 10.21 ng/mL (<=4.00)
[2025-05-14 06:08] LABS: Insulin 4.1 uIU/mL (2.6-24.9)
== END 2025-05-13 11:08 | disposition home or self-care (01) ==
PROVIDERS: PCP Family Medicine; Visit Provider Family Medicine
DX: Z00.00 Encounter for general adult medical examination without abnormal findings (principal); I49.9 Cardiac arrhythmia, unspecified; I48.92 Unspecified atrial flutter; R73.09 Other abnormal glucose; Z12.12 Encounter for screening for malignant neoplasm of rectum; R53.83 Other fatigue; Z12.5 Encounter for screening for malignant neoplasm of prostate; I11.0 Hypertensive heart disease with heart failure
CPT/HCPCS: 36415; 80053; 80061; 83036; 83525; 83880; 84436; 84443; 84481; 84484; 85025; G0103